=== PATIENT | female | born 1970 | race Caucasian/White ===

== ENCOUNTER → 2018-03-12 16:11 | Outpatient (CLI) | payer BC, SELFPAY | PROVIDERS: Visit Provider Specialist | DX: Z53.9 Procedure and treatment not carried out, unspecified reason (principal) ==

== ENCOUNTER → 2018-03-12 16:45 | Outpatient (CLI) | payer BC, SELFPAY ==
[2018-03-12 18:31] LABS: Cancer Antigen 125 < 6 U/mL (0-35)
== END ==
PROVIDERS: Visit Provider Specialist
DX: N83.9 Noninflammatory disorder of ovary, fallopian tube and broad ligament, unspecified (principal); N83.201 Unspecified ovarian cyst, right side
CPT/HCPCS: 36415; 86304

== ENCOUNTER → 2018-04-02 12:21 | Outpatient (CLI) | payer BC, SELFPAY | PROVIDERS: Visit Provider Specialist | DX: N83.201 Unspecified ovarian cyst, right side (principal) | CPT/HCPCS: 36415; 86305 ==

== ENCOUNTER → 2018-04-21 14:06 | Outpatient (CLI) | payer BC, SELFPAY ==
[2018-04-28 13:33] LABS: Human HE4 Antigen 45
== END ==
PROVIDERS: Visit Provider Specialist
DX: N83.201 Unspecified ovarian cyst, right side (principal)
CPT/HCPCS: 86305